=== PATIENT | male | born 1950 | race Caucasian/White ===

== ENCOUNTER → 2017-12-12 14:40 | Outpatient (CLI) | payer MEDICARE ==
[2017-12-12 16:05] LABS: ANION GAP 10.8 mmol/L (8-16); CALCIUM 8.8 mg/dL (8.5-10.1); CARBON DIOXIDE 29.2 mmol/L (21.0-32.0); CREATININE - SERUM 1.1 mg/dL (0.6-1.3); VANCOMYCIN - TROUGH 9.4 ug/mL (10.0-20.0)
== END | disposition home or self-care (01) ==
LOC: D.LABREF 14:40
PROVIDERS: Internal Medicine Cardiovascular Disease
DX: Z51.81 Encounter for therapeutic drug level monitoring (principal); Z79.899 Other long term (current) drug therapy; R79.89 Other specified abnormal findings of blood chemistry

== ENCOUNTER → 2017-12-26 10:37 | Outpatient (CLI) | payer SELFPAY ==
[2017-12-26 12:33] LABS: CALC OSMOLALITY 285 mosm/kg (275-300); CALCIUM 8.8 mg/dL (8.5-10.1); CARBON DIOXIDE 27.5 mmol/L (21.0-32.0); CHLORIDE - SERUM 106 mmol/L (98-107); GLUCOSE 106 mg/dL (74-106); POTASSIUM - SERUM 3.5 mmol/L (3.5-5.1); SODIUM 143 mmol/L (136-145); UREA NITROGEN 16 mg/dL (7-18); VANCOMYCIN - TROUGH 9.9 ug/mL (10.0-20.0); eGFR NON AFRICAN AMERICAN 79 mL/min (90-120)
== END | disposition home or self-care (01) ==
LOC: D.LABREF 10:37
PROVIDERS: Internal Medicine Cardiovascular Disease
DX: M86.9 Osteomyelitis, unspecified (principal)

== ENCOUNTER → 2020-07-31 12:10 | Outpatient (CLI) | payer MEDICARE | END | disposition home or self-care (01) | LOC: D.RAD 12:10 | PROVIDERS: ATTEND Internal Medicine | DX: T14.90XA Injury, unspecified, initial encounter (principal) ==

== ENCOUNTER → 2020-08-07 15:20 | Outpatient (CLI) | payer MEDICARE | END | disposition home or self-care (01) | LOC: D.MRI 15:20 | DX: S92.912A Unspecified fracture of left toe(s), initial encounter for closed fracture (principal); T14.90XA Injury, unspecified, initial encounter ==